=== PATIENT | male | born 1970 | race Caucasian/White ===

== ENCOUNTER 2016-12-11 12:10 | Emergency (ER) | payer OTHER ==
[~2016-12-11 12:10] MED LIST: ACCU-CHEK D-TR1 CAR1; ALPRAZOLAM PO; ALPRAZOLAM0.25 M1 PO; AMOXICILLIN875 MG PO; APIDRA (NF100 UNITS/ INJ; BACTRIM DS TABL1 TA1 PO; BACTRIM DS TABL1 TA2 PO; BENTYL20 M1 PO; BUSPAR; BUSPIRONE HCL10 M1 PO; CARVEDILOL3.125 MG PO; CELEXA; CHOLESTEROL; CIPRO XR 500 M500 MG PO; CITALOPRAM HBR40 MG PO; COLACE PO; CYMBALTA30 MG PO; DICLOFENAC PO; ELIMITE60 G1 TOP; FLEXERIL10 M1 PO; FLEXERIL10 MG PO; HYDROCODON-ACE118 ML PO; ILOTYCIN1 GM OD; KEFLEX500 M2 PO; LANTUS100 U/ML INJ; LISINOPRIL PO; LISINOPRIL2.5 MG PO; LORTAB 5-325 M1 EACH PO; LORTAB 5/500 TA1 TA1 PO; MIRALAX17 G2 PO; NOVOLIN 70/30 V10 M1 SUBQ; NOVOLOG100 U/ML SUBQ; PAXIL PO; PHENERGAN25 MG PO; PRAVACHOL PO; TESSALON200 MG PO; ULTRAM PO; VICODIN 5/1 TAB 5/50 PO; VICODIN 5/500 T1 TAB PO; VISTARIL PO; VOLTAREN50 MG PO; ZITHROMAX PO
== END 2016-12-11 13:18 | disposition home or self-care (01) ==
LOC: SED 12:10
DX: T22.112A Burn of first degree of left forearm, initial encounter (principal); L03.114 Cellulitis of left upper limb; E11.9 Type 2 diabetes mellitus without complications; F41.0 Panic disorder [episodic paroxysmal anxiety]; F32.9 Major depressive disorder, single episode, unspecified; I25.2 Old myocardial infarction; F17.210 Nicotine dependence, cigarettes, uncomplicated; Z23 Encounter for immunization; X08.8XXA Exposure to other specified smoke, fire and flames, initial encounter; Y92.009 Unspecified place in unspecified non-institutional (private) residence as the place of occurrence of the external cause
CPT/HCPCS: 16000; 90471; 90715; 99283

== ENCOUNTER 2017-02-09 11:24 | Emergency (ER) | payer OTHER ==
--- NOTE | ~2017-02-09 | CT2 ---
[facility] A Service of [facility] & [facility] RADIOLOGY TEXT RESULTS PATIENT: HAWK GRIJALVA LOCATION: SED : 70 UNIT #: [id number] AGE: [address]: Domonique An MD SEX: M ORDER DR: [id number] [place] [id number] E MR#: [id number] Acc #: [id number] NAME: HAWK GRIJALVA : 1970 SEX: M STUDY DATE/TIME: 02/09/2017 12:49 UNIT: SED ROOM: STUDY DESCRIPTION: CT Abd and Pelv W Cont Attending Physician: Domonique An M.D. Ordering Physician: Domonique An M.D. Primary Care Physician: Ghislaine Roman M.D. MEDICAL IMAGING REPORT This report is preliminary unless electronic signature is present. EXAM Abdomen and pelvis CT with contrast HISTORY Diarrhea and vomiting for 3 days, flu-like symptoms, body aches, hypertension, colitis and stroke history. COMMENT CT of the abdomen and pelvis performed during the intravenous administration of Isovue-370. Dose not indicated in the PACS system. Please refer to the medical record at [facility]. This CT examination was performed with one or more of the following radiation dose reduction techniques: automatic exposure control, adjustment of mA and/or kV according to patient size, and iterative reconstruction. The comparison study is from 03/08/2015. There is mild dependent atelectasis at the right greater than left lung base. Possible mild fatty infiltration of the liver. Please correlate with clinical findings since this is a contrast-enhanced study and limits assessment for fatty liver attenuation. The gallbladder, spleen, adrenal glands, pancreas, and right kidney are normal. There is what is likely a nonobstructing calculus in the left kidney interpolar region about 7 mm in dimension. Less likely consideration is early excretion. There is no hydronephrosis. Evaluation of the pelvis shows a partially decompressed urinary bladder. There is air-fluid level in the rectum consistent with provided history of diarrhea. There is a small amount of free fluid in the pelvis which is abnormal in a male patient. The appendix is radiographically normal. There is probably only mild colonic wall thickening at the cecum. Colon is not distended with contrast and this makes it hard to evaluate for wall thickening. There are some prominent small bowel loops with occasional STS. [facility] A Service of [facility] & [facility] RADIOLOGY TEXT RESULTS PATIENT: HAWK GRIJALVA LOCATION: SED : 70 UNIT #: [id number] AGE: [address]: Domonique An MD SEX: M ORDER DR: air-fluid levels but there is no transition point seen and nothing to suggest bowel obstruction. Again noted is thickening of the partially decompressed urinary bladder wall diffusely. Again please correlate for clinical evidence of cystitis. This concern was raised previously as well. There is no free air or drainable fluid collection suspected. Mild vascular calcifications in the abdominal aorta. IMPRESSION 1. There is a small air-fluid level in the rectum. The colon is largely decompressed since the study is performed without oral contrast media. There may be some subtle wall thickening in the region of the cecum but otherwise no definite evidence for colitis. Please correlate further clinically. 2. Small amount of fluid is seen in the pelvis. No drainable fluid collection seen but this is not normal in a male patient. 3. No evidence for bowel obstruction, free air or drainable fluid collection. 4. There is what is probably a nonobstructing calculus in the left kidney interpolar region about 7 mm dimension. 5. Again the urinary bladder wall is likely diffusely thickened. This is noted on the previous study as well. Please correlate for clinical evidence for cystitis. Please correlate with any interval workup. 6. Possible mild fatty infiltration of the liver. Please correlate further clinically. 7. The appendix is radiographically unremarkable. STAT * RESULT Dictated by... Deborah Kaiser M.D. THIS IS AN ELECTRONICALLY VERIFIED REPORT Deborah Kaiser M.D. at 02/09/2017 2:24 PM KIM/alicja TD: 02/09/2017 13:28 JOB #: [id number] MEDICAL IMAGING REPORT Page 1 of 1
[2017-02-09 11:59] LABS: URINE SOURCE CLEAN CATCH
[2017-02-09 12:01] LABS: BASOPHIL% 0.5 % (0-2.5); HEMATOCRIT 43.3 % (38.0-50.0); HEMOGLOBIN 14.9 gm/dL (13.0-16.0); LYMPHOCYTE# 0.9 X10e3 (1.0-3.5); LYMPHOCYTE% 16.3 % (17.0-45.0); MEAN CELL VOLUME 87.2 FL (83-96); MEAN CORPUSCULAR HGB CONC 34.5 g/dL (30-36); MEAN PLATELET VOLUME 8.6 FL (6.5-11.5); MONOCYTE# 0.5 X10e3 (0-1.0); MONOCYTE% 9.6 % (3.0-12.0); NEUTROPHIL# 3.9 X10e3 (1.5-7.1); NEUTROPHIL% 73.6 % (40-75); PLATELET COUNT 178 X10e3 (140-420); RED BLOOD COUNT 4.97 X10e (3.90-5.60); RED CELL DISTRIBUTION WIDTH 13.3 % (11.0-15.5); WHITE BLOOD COUNT 5.4 X10e3 (4.0-10.5)
[2017-02-09 12:01] LABS: URINE APPEARANCE CLEAR; URINE BLOOD NEG (NEG); URINE COLOR YELLOW; URINE GLUCOSE NEG (NORM); URINE LEUKOCYTE ESTERASE NEG (NEG); URINE NITRATE NEG (NEG); URINE PROTEIN 1+ (NEG); URINE SPECIFIC GRAVITY >=1.030 (1.003-1.035); URINE UROBILINOGEN 0.2 MG/DL (NORM)
[2017-02-09 12:07] LABS: DIFF IND NO
[2017-02-09 12:08] LABS: URINE KETONE 2+ (NEG)
[2017-02-09 12:09] LABS: MICRO INDICATED? YES; URINE BILIRUBIN NEG (NEG)
[2017-02-09 12:12] LABS: CULTURE INDICATED? NO; URINE BACTERIA NEG (NEG); URINE RBC 0-2 /[HPF] (0-2); URINE WBC 0-2 /[HPF] (0-5)
[2017-02-09 12:21] LABS: ALBUMIN SERUM 4.3 g/dL (3.5-5.0); ALKALINE PHOSPHATASE 52 U/L (32-92); ALT (SGPT) 20 U/L (10-40); AST (SGOT) 26 U/L (10-42); BILIRUBIN,TOTAL 0.5 mg/dL (0.2-2.0); BLOOD UREA NITROGEN 20 mg/dL (9-23); CALCIUM SERUM 9.1 mg/dL (8.4-10.2); CARBON DIOXIDE 27 mmol/L (22-31); CHLORIDE 100 mmol/L (100-111); CPK (CREATINE PHOSPHOKINASE) 57 IU/L (36-174); GLOM FILT RATE Estimated 89.9 mL/min (>60); GLUCOSE FASTING 155 mg/dL (70-110); LIPASE 22 U/L (22-51); MAGNESIUM 2.2 mg/dL (1.6-3.0); POTASSIUM 3.6 mmol/L (3.5-5.1); SODIUM 134 mmol/L (135-145)
[2017-02-09 12:27] LABS: AMYLASE <7 U/L (0-46); BILIRUBIN, DIRECT <0.1 mg/dL (0.0-0.2); BILIRUBIN,INDIRECT 0.4 mg/dL (0.0-0.9)
== END 2017-02-09 16:39 ==
LOC: SED 11:24
PROVIDERS: Student in an Organized Health Care Education/Training Program
DX: K52.9 Noninfective gastroenteritis and colitis, unspecified (principal); E86.0 Dehydration; E11.9 Type 2 diabetes mellitus without complications; I10 Essential (primary) hypertension; E78.5 Hyperlipidemia, unspecified; Z98.890 Other specified postprocedural states; F17.200 Nicotine dependence, unspecified, uncomplicated; Z88.5 Allergy status to narcotic agent; Z79.899 Other long term (current) drug therapy
CPT/HCPCS: 36415; 74177; 80048; 80076; 81003; 82150; 82550; 82947; 83690; 83735; 85025; 96365; 96375; 99285; C9113; J1170; J1956; J2270; J2405; Q9967